=== PATIENT | female | born 1990 | race American Indian/Alaskan Native ===

== ENCOUNTER 2020-11-08 10:52 | Emergency (ER) | payer MEDICAID ==
[~2020-11-08] VITALS: Ht 170.2 cm; Wt 66.4 kg
[2020-11-08 12:06] LABS: BASOPHILS % (AUTO) 0.3 % (0-1); EOSINOPHILS % (AUTO) 0.2 % (0-6); HEMATOCRIT 36.5 % (35.0-45.0); HEMOGLOBIN 12.3 g/dl (12.0-16.0); LYMPHOCYTES # (AUTO) 1.4 X10'3 (1.1-4.8); LYMPHOCYTES % (AUTO) 21.1 % (21-51); MEAN CORPUSCULAR HEMOGLOBIN 30.2 PG (27.0-31.0); MEAN CORPUSCULAR HGB CONC 33.5 g/dL (33.0-36.5); MEAN CORPUSCULAR VOLUME 90.2 FL (78-98); MEAN PLATELET VOLUME 8.9 FL (7.4-10.4); MONOCYTES # (AUTO) 0.3 X10'3 (0-0.9); MONOCYTES % (AUTO) 4.7 % (2-12); NEUTROPHILS # (AUTO) 4.9 X10'3 (1.8-7.7); NEUTROPHILS % (AUTO) 73.7 % (42-75); PLATELET COUNT 277 X10'3 (140-440); RED BLOOD COUNT 4.05 X10'6 (4.20-5.60); RED CELL DISTRIBUTION WIDTH 13.6 % (11.5-14.5); WHITE BLOOD COUNT 6.6 X10'3 (4.5-11.0)
[2020-11-08 12:09] LABS: URINE HCG NEGATIVE (NEG)
[2020-11-08 12:13] LABS: CLARITY,URINE CLOUDY (Clear); COLOR,URINE YELLOW (Yellow); GLUCOSE, URINE NEGATIVE (Neg); KETONES,URINE NEGATIVE (Neg); LEUKOCYTE ESTERASE ,URINE NEGATIVE (Neg); NITRITES, URINE NEGATIVE (Neg); OCCULT BLOOD,URINE LARGE (Neg); PROTEIN,URINE NEGATIVE (Neg); UROBILINOGEN,URINE 0.2 E.U/dL (0.2-1.0)
[2020-11-08 12:14] LABS: UA COLLECTION TYPE CLN CATCH MIDSTREAM
[2020-11-08 12:25] LABS: SQUAMOUS EPITHELIAL CELL,UR MODERATE /LPF (FEW)
[2020-11-08 12:26] LABS: BACTERIA,URINE FEW /HPF (Neg); RBC,URINE TNTC /HPF (0-2); WBC,URINE 0-4 /HPF (0-4)
[2020-11-08 12:28] LABS: URINE AMPHETAMINE SCREEN NEGATIVE (Neg); URINE BARBITUATE SCREEN NEGATIVE (Neg); URINE BENZODIAZEPINES SCREEN NEGATIVE (Neg); URINE CANNABINOID SCREEN NEGATIVE (Neg); URINE COCAINE SCREEN NEGATIVE (Neg); URINE METHADONE SCREEN NEGATIVE (Neg); URINE OPIATE SCREEN NEGATIVE (Neg); URINE PHENCYCLIDINE SCREEN NEGATIVE (Neg)
[2020-11-08 12:29] LABS: ALANINE AMINOTRANSFERASE 11 U/L (12-78); ALBUMIN 4.1 G/DL (3.4-5.0); ALBUMIN/GLOBULIN RATIO 1.1 (1.1-1.5); ALKALINE PHOSPHATASE 51 IU/L (46-116); ANION GAP 12 (8-16); ASPARTATE AMINO TRANSFERASE 18 U/L (10-37); BILIRUBIN,TOTAL 0.9 MG/DL (0.1-1.0); BLOOD UREA NITROGEN 7 MG/DL (7-18); BUN/CREATININE RATIO 10.4 (6.6-38.0); CHLORIDE 105 MMOL/L (99-107); CREATININE 0.67 MG/DL (0.40-0.90); ETHANOL < 0.010 GM/DL (0.0-0.010); GLUCOSE 93 MG/DL (70-104); POTASSIUM 3.5 MMOL/L (3.5-5.1); SODIUM 141 MMOL/L (135-145); TOTAL CARBON DIOXIDE 24.3 MMOL/L (24-32); TOTAL PROTEIN 7.8 G/DL (6.4-8.2); eGFR > 90 ML/MIN
--- NOTE | 2020-11-08 12:37 | NUR ---
Patient ambulated over with PCT to bed 24 from main ED. Pt changed into green scrubs, personal belongings were inventoried, vitals obtained. Pt presents as tearful. 1:1 was completed at bedside. Patient states she is feeling sad and depressed, but does not endorse SI. Pt graudated in August 2020 from [facility] in [place]. She started a new job here in [facility] and parents moved to [place]. Recent trigger pt lost her grandfather yesterday. "I was going to visit him in January, I didn[place] know [place] was [place]." [place] of [place] train brings back "other feelings." "It has been a whole lot all at once." Pt sees a clinician with [facility] and it ws suggested she come to the ER. Pt has been having fleeting suicidal thoughts to "run my car into a building." Pt not feeling suicidal at present, just depressed. "I just need medication that's why I came in." Pt has another counseling appointment on 11/12 with same clinician that sent her to ER. Pt states she had a SA at the age of 12 where she overdosed on pills and EMS had to be called. In 2018 she had S/I and started counseloring at this time. Pt has history of asthma and migraines.
[2020-11-08] MEDS ORDERED: NO HOME MEDS (13:05)
--- NOTE | 2020-11-08 13:21 | NUR ---
PACKET SENT TO [facility]
--- NOTE | 2020-11-08 14:36 | NUR ---
Pt sitting on side of bed reading a Bible. Pt made a phone call to her parents. Pt calm, waiting for [facility] to assess.
[2020-11-08 16:26] VITALS: BP 123/71
--- NOTE | 2020-11-08 16:36 | NUR ---
DISCHARGE NOTE: Pt discharged from overflow at 1430. Pt independently ambulated out with automatic typewriter inspector. Discharge instructions were reviewed and pt verbalized understanding. Pt has prior scheduled appointment with [facility] on 11/12 that pt will keep. Pt was A&O x4. Thankful for the information she received. Pt denies all MH symptoms.
== END 2020-11-08 16:37 | disposition home or self-care (01) ==
LOC: ER 10:53
DX: R45.851 Suicidal ideations (principal); F32.9 Major depressive disorder, single episode, unspecified; Z60.2 Problems related to living alone
CPT/HCPCS: 36415; 80053; 80305; 80320; 81001; 81025; 84443; 85025; 99285